=== PATIENT | female | born 1955 | race Caucasian/White ===

== ENCOUNTER 2019-12-24 00:58 | Emergency (ER) | payer MEDICAID ==
[~2019-12-24] VITALS: Ht 157.5 cm; Wt 71.2 kg
[2019-12-24 01:02] VITALS: Ht 157.5 cm; Wt 71.2 kg
[2019-12-24 02:59] VITALS: BP 178/85
== END 2019-12-24 02:59 | disposition home or self-care (01) ==
LOC: ED 00:58
DX: I10 Essential (primary) hypertension (principal); M25.512 Pain in left shoulder; M79.622 Pain in left upper arm

== ENCOUNTER 2020-05-22 09:59 | Emergency (ER) | payer OTHER ==
[~2020-05-22] VITALS: Ht 154.9 cm; Wt 73.0 kg
[2020-05-22 10:20] VITALS: BP 171/94; Ht 154.9 cm; Wt 73.0 kg
== END 2020-05-22 10:45 | disposition home or self-care (01) ==
LOC: ED 09:59
DX: J02.9 Acute pharyngitis, unspecified (principal); I10 Essential (primary) hypertension; Z20.828 Contact with and (suspected) exposure to other viral communicable diseases
CPT/HCPCS: U0003-CS